=== PATIENT | male | born 1985 | race Caucasian/White ===

== ENCOUNTER 2017-07-10 18:47 | Emergency (ER) | payer SELFPAY ==
[~2017-07-10] VITALS: Ht 154.9 cm; Wt 72.5 kg
[2017-07-10] MEDS ORDERED: KETOROLAC 60MG/2ML VIAL IM ONE (23:15)
[2017-07-10 23:51] VITALS: BP 151/105
== END 2017-07-11 02:28 | disposition home or self-care (01) ==
LOC: ER 22:21
DX: S62.521A Displaced fracture of distal phalanx of right thumb, initial encounter for closed fracture (principal); V19.9XXA Pedal cyclist (driver) (passenger) injured in unspecified traffic accident, initial encounter; Y93.55 Activity, bike riding; Y99.8 Other external cause status; Y92.89 Other specified places as the place of occurrence of the external cause
CPT/HCPCS: 29125; 73140; 96372; 99284; J1885